=== PATIENT | female | born 1975 | race African-American/Black ===

== ENCOUNTER 2024-06-01 13:45 | Emergency (ER) | payer SELFPAY ==
[2024-06-01 13:45] VITALS: BP 155/104; PULSE 98; RESP 16; TEMP 36.6; TEMP 36.7; O2SAT 100
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
== END 2024-06-01 14:08 | disposition home or self-care (01) ==
PROVIDERS: Emergency Provider Emergency Medicine
DX: K04.7 Periapical abscess without sinus (principal)
CPT/HCPCS: 99283